=== PATIENT | male | born 1965 | race Caucasian/White ===

== ENCOUNTER 2017-05-04 15:57 | Emergency (ER) | payer OTHER ==
[~2017-05-04] VITALS: Ht 172.7 cm; Wt 81.6 kg
[~2017-05-04 15:57] MED LIST: ASPI81TA31 PO; SERT100T PO
[2017-05-04] MEDS ORDERED: METOPROLOL (16:27)
[2017-05-04] MEDS ORDERED: CLOP75TA15 PO (16:27)
[2017-05-04] MEDS ORDERED: SIMVASTATIN (16:27)
--- NOTE | 2017-05-04 16:27 | NUR ---
PT DOES NOT KNOW DOSES OF CERTAIN MEDICATIONS .
[2017-05-04 17:12] LABS: *BLOOD, URINE 3+ (NEGATIVE); *KETONES,URINE TRACE (NEGATIVE); *PROTEIN,URINE 2+ (NEGATIVE); LEUKOCYTE ESTERASE ,URINE NEGATIVE (NEGATIVE); NITRITE, URINE NEGATIVE (NEGATIVE); UGLUCOSE NEGATIVE (NEGATIVE)
[2017-05-04 17:20] LABS: *CLARITY,URINE CLOUDY (CLEAR); *COLOR,URINE Brown (YELLOW)
[2017-05-04 17:21] LABS: *BILIRUBIN,URIN NEGATIVE (NEGATIVE)
[2017-05-04 17:25] LABS: RBC,URINE TNTC /HPF (0-3)
[2017-05-04 17:26] LABS: BACTERIA,URINE FEW /HPF (NONE SEEN); MUCUS,URINE MANY /LPF (0-FEW)
[2017-05-04 17:50] VITALS: BP 112/60
--- NOTE | 2017-05-04 17:51 | NUR ---
Patient discharged to home in stable conditon. Written and verbal after care instructions given. Patient verbalizes understanding of instructions.
== END 2017-05-04 17:54 | disposition home or self-care (01) ==
LOC: ER 15:58
DX: R31.9 Hematuria, unspecified (principal); E78.5 Hyperlipidemia, unspecified; F17.200 Nicotine dependence, unspecified, uncomplicated; Z79.02 Long term (current) use of antithrombotics/antiplatelets; Z79.82 Long term (current) use of aspirin; Z95.5 Presence of coronary angioplasty implant and graft; I25.2 Old myocardial infarction
CPT/HCPCS: A4663

== ENCOUNTER 2019-08-17 15:32 | Emergency (ER) | payer OTHER ==
[~2019-08-17] VITALS: Ht 172.7 cm; Wt 79.4 kg
[~2019-08-17 15:32] MED LIST changes: +CLOP75TA15 PO; +METOPROLOL; +SIMVASTATIN
--- NOTE | 2019-08-17 15:41 | NUR ---
@bedside, MSE in progress
[2019-08-17] MEDS ORDERED: ACETAMINOPHEN ES 500 MG TABLET ONE (15:51)
[2019-08-17] MEDS ORDERED: ACETAMINOPHEN ES 500 MG TABLET PO ONE (16:00)
--- NOTE | 2019-08-17 16:38 | NUR ---
Patient discharged to home in stable condition & brisk steady gait. Written and verbal after care instructions given to patient. Patient verbalizes understanding of instructions. Stressed follow up with ENT doctor /his primary doctor or return to ER for worsening s/s.
== END 2019-08-17 16:40 | disposition home or self-care (01) ==
LOC: ER 15:38
DX: R51 Headache (principal); J34.89 Other specified disorders of nose and nasal sinuses; J34.2 Deviated nasal septum; I25.2 Old myocardial infarction; Z95.5 Presence of coronary angioplasty implant and graft; Z79.02 Long term (current) use of antithrombotics/antiplatelets; E78.5 Hyperlipidemia, unspecified; F41.9 Anxiety disorder, unspecified; Z79.899 Other long term (current) drug therapy; K21.9 Gastro-esophageal reflux disease without esophagitis; Z82.49 Family history of ischemic heart disease and other diseases of the circulatory system
CPT/HCPCS: 70450; 70486; A4663; A9150

== ENCOUNTER 2019-09-27 21:20 | Emergency (ER) | payer OTHER ==
[~2019-09-27] VITALS: Ht 172.7 cm; Wt 79.4 kg
[~2019-09-27 21:20] MED LIST changes: -CLOP75TA15 PO; -METOPROLOL; -SERT100T PO
--- NOTE | 2019-09-27 21:31 | NUR ---
PATIENT ARRIVED AT THE ER WITH C/O SINUS PAIN X 2 DAYS.
--- NOTE | 2019-09-27 21:32 | NUR ---
Dr. Fernandez at bedside for MSE.
--- NOTE | 2019-09-27 22:12 | NUR ---
Patient discharged to home in stable condition. Written and verbal after care instructions given. Patient verbalizes understanding of instructions. Stressed follow up or return to ER for worsening s/s. Pt ambulated out of the ER with steady gait. All belongings with pt.
[2019-09-27 22:13] VITALS: BP 119/54
== END 2019-09-27 22:14 | disposition home or self-care (01) ==
LOC: ER 21:24
DX: J01.90 Acute sinusitis, unspecified (principal); E78.5 Hyperlipidemia, unspecified; Z95.5 Presence of coronary angioplasty implant and graft; Z82.49 Family history of ischemic heart disease and other diseases of the circulatory system; I25.2 Old myocardial infarction; Z79.82 Long term (current) use of aspirin; Z88.6 Allergy status to analgesic agent; F17.200 Nicotine dependence, unspecified, uncomplicated
CPT/HCPCS: A4663

== ENCOUNTER 2019-11-13 15:00 | Emergency (ER) | payer OTHER ==
[~2019-11-13] VITALS: Ht 172.7 cm; Wt 79.4 kg
--- NOTE | 2019-11-13 15:07 | NUR ---
Dr Gonzales at the bedside for MSE.
[2019-11-13] MEDS ORDERED: KETOROLAC TROMETHAMINE 30 MG INJ IM ONE (15:15)
[2019-11-13] MEDS ORDERED: KETOROLAC TROMETHAMINE 30 MG INJ ONE (15:19)
[2019-11-13] MEDS ORDERED: IBUPROFEN 800 MG TABLET ONE (15:21)
[2019-11-13 15:23] VITALS: BP 120/85
[2019-11-13] MEDS ORDERED: IBUPROFEN 800 MG TABLET PO ONE (15:30)
--- NOTE | 2019-11-13 15:31 | NUR ---
Patient discharged to home in stable condition. Written and verbal after care instructions given. Patient verbalizes understanding of instructions. Stressed follow up or return to ER for worsening s/s.
== END 2019-11-13 15:31 | disposition home or self-care (01) ==
LOC: ER 15:00
DX: R51 Headache (principal); E78.5 Hyperlipidemia, unspecified; I25.10 Atherosclerotic heart disease of native coronary artery without angina pectoris; Z95.5 Presence of coronary angioplasty implant and graft; I25.2 Old myocardial infarction; F41.9 Anxiety disorder, unspecified; Z79.82 Long term (current) use of aspirin; Z79.899 Other long term (current) drug therapy; Z82.49 Family history of ischemic heart disease and other diseases of the circulatory system; Z88.6 Allergy status to analgesic agent; K21.9 Gastro-esophageal reflux disease without esophagitis
CPT/HCPCS: A4663; J1885

== ENCOUNTER 2020-01-01 01:41 | Emergency (ER) | payer OTHER ==
[~2020-01-01] VITALS: Ht 172.7 cm; Wt 79.4 kg
--- NOTE | 2020-01-01 02:05 | NUR ---
at bedside for assessment
--- NOTE | 2020-01-01 02:43 | NUR ---
Patient discharged to home in stable condition. Able to ambulate in ssteady manner, took all belongings, no signs of distress noted. No signs of acute distress noted. Rx given Written and verbal after care instructions given. Patient verbalizes understanding of instructions. Stressed follow up or return to ER for worsening s/s.
[2020-01-01 02:48] VITALS: BP 134/72
== END 2020-01-01 02:43 | disposition home or self-care (01) ==
LOC: ER 01:45
DX: G44.89 Other headache syndrome (principal); F17.210 Nicotine dependence, cigarettes, uncomplicated; Z82.49 Family history of ischemic heart disease and other diseases of the circulatory system; I25.2 Old myocardial infarction; Z95.5 Presence of coronary angioplasty implant and graft; Z79.82 Long term (current) use of aspirin; K21.9 Gastro-esophageal reflux disease without esophagitis
CPT/HCPCS: A4663

== ENCOUNTER 2020-09-09 16:29 | Emergency (ER) | payer SELFPAY ==
--- NOTE | 2020-09-09 17:02 | NUR ---
Patient left without being triaged.
== END 2020-09-09 17:04 | disposition left against medical advice (07) ==
LOC: ER 16:31
DX: Z53.21 Procedure and treatment not carried out due to patient leaving prior to being seen by health care provider (principal)

== ENCOUNTER 2021-01-20 01:01 | Emergency (ER) | payer OTHER ==
[~2021-01-20] VITALS: Ht 172.7 cm; Wt 80.7 kg
--- NOTE | 2021-01-20 01:15 | NUR ---
Dr. Laura at bedside for MSE.
[2021-01-20] MEDS ORDERED: IBUP-1953 PO (01:22)
[2021-01-20] MEDS ORDERED: NEOM10DR11 EACH EAR (01:28)
[2021-01-20] MEDS ORDERED: NEOMY/POLYMYX B/HC OTIC SOL 10 ML BOTTLE OT ONE (01:30)
[2021-01-20] MEDS ORDERED: NEOMY/POLYMYX B/HC OPHT DROP 7.5 ML BOTTLE ONE (01:31)
[2021-01-20] MEDS ORDERED: NEOMY/POLYMYX B/HC OTIC SOL 10 ML BOTTLE ONE (01:33)
--- NOTE | 2021-01-20 01:33 | NUR ---
Patient discharged to home in stable condition. Written and verbal after care instructions given. Patient verbalizes understanding of instructions. Stressed follow up or return to ER for worsening s/s. Patient out of ER with steady gait, no acute signs of distress, VSS, all belongings taken.
[2021-01-20 01:34] VITALS: BP 113/71
== END 2021-01-20 01:34 | disposition home or self-care (01) ==
LOC: ER 01:01
DX: H60.91 Unspecified otitis externa, right ear (principal); F17.210 Nicotine dependence, cigarettes, uncomplicated; Z82.49 Family history of ischemic heart disease and other diseases of the circulatory system; E78.5 Hyperlipidemia, unspecified; I25.2 Old myocardial infarction; Z95.5 Presence of coronary angioplasty implant and graft; Z79.899 Other long term (current) drug therapy; Z79.82 Long term (current) use of aspirin
CPT/HCPCS: A4663; J3590

== ENCOUNTER 2021-12-25 23:24 | Emergency (ER) | payer OTHER ==
[~2021-12-25] VITALS: Ht 175.3 cm; Wt 63.5 kg
[~2021-12-25 23:24] MED LIST changes: +IBUP-1953 PO; +NEOM10DR11 EACH EAR
--- NOTE | 2021-12-26 00:55 | NUR ---
Dr. Rosa with patient. MSE in progress.
--- NOTE | 2021-12-26 01:32 | NUR ---
Pt left without signing discharge paperwork
[2021-12-26 01:33] VITALS: BP 101/63
== END 2021-12-26 01:34 | disposition home or self-care (01) ==
LOC: ER 23:24
DX: M65.311 Trigger thumb, right thumb (principal); F17.210 Nicotine dependence, cigarettes, uncomplicated; Z82.49 Family history of ischemic heart disease and other diseases of the circulatory system; E78.5 Hyperlipidemia, unspecified; I25.2 Old myocardial infarction; Z95.5 Presence of coronary angioplasty implant and graft; Z79.82 Long term (current) use of aspirin; Z79.899 Other long term (current) drug therapy

== ENCOUNTER 2023-12-11 05:34 | Emergency (ER) | payer OTHER ==
[~2023-12-11] VITALS: Ht 177.8 cm; Wt 79.4 kg
[2023-12-11 05:45] VITALS: O2SAT 98
== END 2023-12-11 06:20 | disposition left against medical advice (07) ==
LOC: ER 05:34
DX: M54.50 Low back pain, unspecified (principal); K62.89 Other specified diseases of anus and rectum; Z53.21 Procedure and treatment not carried out due to patient leaving prior to being seen by health care provider
CPT/HCPCS: A4606; A4663

== ENCOUNTER 2024-06-18 20:10 | Emergency (ER) | payer OTHER ==
[~2024-06-18] VITALS: Ht 177.8 cm; Wt 79.8 kg
[2024-06-18] MEDS ORDERED: IPRATROPIUM BROMIDE 0.5 MG/2.5 ML NEBU ONE (21:07)
[2024-06-18] MEDS ORDERED: ALBUTEROL SULFATE 2.5 MG/3 ML NEBU ONE (21:07)
[2024-06-18 21:11] LABS: BASOPHILS # (AUTO) 0.1 K/UL (0.0-0.2); BASOPHILS % (AUTO) 0.8 % (0.0-2.0); EOSINOPHILS # (AUTO) 1.1 K/uL (0.0-0.7); EOSINOPHILS % (AUTO) 12.1 % (0.0-7.0); HEMATOCRIT 44.4 % (36.7-47.1); HEMOGLOBIN 15.2 g/dL (12.5-16.3); LYMPHOCYTES % (AUTO) 31.2 % (20.5-51.5); MEAN CORPUSCULAR HEMOGLOBIN 31.2 uug (23.8-33.4); MEAN CORPUSCULAR HGB CONC 34 g/dL (32.5-36.3); MEAN CORPUSCULAR VOLUME 90.8 fL (73.0-96.2); MONOCYTES % (AUTO) 10.1 % (0.0-11.0); NEUTROPHILS # (AUTO) 4.3 K/uL (1.8-8.9); NEUTROPHILS % (AUTO) 45.8 % (38.5-71.5); PLATELET COUNT (AUTO) 284 K/uL (152-348); RED BLOOD CELL COUNT(AUTO) 4.89 MIL/uL (4.06-5.63); RED CELL DISTRIBUTION WIDTH 13.4 % (12.1-16.2); WHITE BLOOD COUNT (AUTO) 9.5 K/uL (3.6-10.2)
[2024-06-18 21:17] VITALS: O2SAT 94
[2024-06-18] MEDS: IPRATROPIUM BROMIDE 0.5 MG/2.5 ML NEBU NEB ONE (21:17)
[2024-06-18] MEDS: ALBUTEROL SULFATE 2.5 MG/3 ML NEBU NEB ONE (21:17)
[2024-06-18 21:30] VITALS: O2SAT 98
[2024-06-18 21:34] LABS: ALBUMIN 3.5 g/dL (3.4-5.0); BILIRUBIN,TOTAL 0.3 mg/dL (0.2-1.0)
[2024-06-18] MEDS ORDERED: FLUT16SP BNOSTRILS (21:50)
[2024-06-18] MEDS ORDERED: DOXY-326 PO (21:50)
[2024-06-18] MEDS ORDERED: ALBU18HF2 INH (21:50)
[2024-06-18 22:20] VITALS: BP 125/70; TEMP 97.8; O2SAT 98
== END 2024-06-18 22:20 | disposition home or self-care (01) ==
LOC: ER 20:10
DX: J01.90 Acute sinusitis, unspecified (principal); J20.9 Acute bronchitis, unspecified; E78.5 Hyperlipidemia, unspecified; F17.210 Nicotine dependence, cigarettes, uncomplicated; Z79.82 Long term (current) use of aspirin; Z95.5 Presence of coronary angioplasty implant and graft
CPT/HCPCS: 36415; 71045; 84484; 85025; A4606; A4663; J3590

== ENCOUNTER 2025-02-10 00:38 | Emergency (ER) | payer OTHER ==
[~2025-02-10] VITALS: Ht 175.3 cm; Wt 78.9 kg
[~2025-02-10 00:38] MED LIST changes: +ALBU18HF2 INH; +DOXY-326 PO; +FLUT16SP BNOSTRILS
[2025-02-10 00:42] VITALS: BP 125/77
[2025-02-10] MEDS: ALBUTEROL SULFATE 2.5 MG/3 ML NEBU NEB ONE (01:14)
[2025-02-10] MEDS: IPRATROPIUM BROMIDE 0.5 MG/2.5 ML NEBU NEB ONE (01:14)
[2025-02-10 01:21] LABS: PLATELET COUNT (AUTO) 272 K/uL (152-348); RED BLOOD CELL COUNT(AUTO) 5.06 MIL/uL (4.06-5.63); RED CELL DISTRIBUTION WIDTH 14.3 % (12.1-16.2); WHITE BLOOD COUNT (AUTO) 8.2 K/uL (3.6-10.2)
[2025-02-10] MEDS ORDERED: IPRATROPIUM BROMIDE 0.5 MG/2.5 ML NEBU ONE (01:21)
[2025-02-10] MEDS ORDERED: ALBUTEROL SULFATE 2.5 MG/3 ML NEBU ONE (01:21)
[2025-02-10 01:30] LABS: CREATININE 1.1 mg/dL (0.6-1.3); SODIUM SERUM 139 mmol/L (136-145); UREA NITROGEN, BLOOD 22 mg/dL (7-18)
[2025-02-10 01:35] LABS: ASPARTATE AMINOTRANSFERASE 11 U/L (15-37); TOTAL PROTEIN, SERUM 7.2 g/dL (6.4-8.2)
[2025-02-10 01:45] VITALS: O2SAT 95
[2025-02-10 02:00] VITALS: O2SAT 99
[2025-02-10] MEDS ORDERED: ALBU8.5H8 IH (02:05)
[2025-02-10] MEDS ORDERED: PRED20TA PO (02:05)
[2025-02-10 02:11] VITALS: BP 122/80; O2SAT 99
== END 2025-02-10 02:13 | disposition home or self-care (01) ==
LOC: ER 00:42
DX: J20.9 Acute bronchitis, unspecified (principal); I51.9 Heart disease, unspecified; F17.210 Nicotine dependence, cigarettes, uncomplicated; E78.5 Hyperlipidemia, unspecified; Z79.52 Long term (current) use of systemic steroids; Z79.82 Long term (current) use of aspirin; Z88.7 Allergy status to serum and vaccine; Z95.5 Presence of coronary angioplasty implant and graft; Z20.822 Contact with and (suspected) exposure to COVID-19
CPT/HCPCS: 99285; 71045; 99406; 87426; 87804 ×2; 80076; 80048; 83880; 85025; 85379; 84484; 36415; 94640; 93005; J7512; A4606; A4663; J3590